=== PATIENT | female | born 2005 | race Caucasian/White ===

== ENCOUNTER 2023-12-14 18:22 | Emergency (ER) | payer OTHER, SELFPAY ==
[2023-12-14 18:22] VITALS: BMI 23.4
[2023-12-14 18:50] VITALS: BP 112/80
--- NOTE | 2023-12-14 18:52 | ED.PDOC.TRB ---
ED Provider Triage
-
Patient seen by provider in Triage?: Seen in Triage
*Initial assessment in triage to expedite workup*
18 yo female presents for evaluation of RLQ pain, blood in the urine w/ N/V. Pain is sharp in nature. Worse with urination, radiates to the low back. LMP 12/02. Had STD test and UA at primary doc that were negative.
Clinically looks well. Moderate RLQ tenderness, No CVAT. Slightly tachy, otherwise normal VS.
Will order CBC, CMP, hcg, CT w/ IV and PO contrast to eval for appy, kidney stone, TOA
[2023-12-14 19:11] LABS: % Basophils 0.7 % (0-2); % Eosinophils 0.6 % (0-6); % Immature Granulocytes 0.3 % (0-0.5); % Lymphocytes 20.7 % (20.5-51.1); % Monocytes 4.6 % (1.7-9.3); % Neutrophils 73.1 % (42.2-75.2); Absolute Basophils 0.1 10^3/uL (0-0.2); Absolute Eosinophils 0.1 10^3/uL (0-0.7); Absolute Lymphocytes 2.1 10^3/uL (1.2-3.4); Absolute Monocytes 0.5 10^3/uL (0.1-0.6); Absolute Neutrophils 7.2 10^3/uL (1.4-6.5); Hematocrit 37.9 % (37.0-47.0); Hemoglobin 14.2 g/dL (12.0-16.0); Mean Corp Hgb Conc. 37.5 g/dL (33.0-37.0); Mean Corpuscular Hgb 30.9 pg (27.0-31.0); Mean Corpuscular Volume 82.6 fL (81.0-99.0); Mean Platelet Volume 8.9 fL (7.4-10.4); Nucleated Red Blood Cells % 0 %; Platelet Count 301 10^3/uL (130-400); Red Blood Cell Count 4.59 10^6/uL (4.20-5.40); Red Cell Dist. Width 12.1 % (11.5-14.5); White Blood Cell Count 9.9 10^3/uL (4.8-10.8)
[2023-12-14] MEDS: OMNIPAQUE 960 ML PO (19:22)
[2023-12-14 19:43] LABS: ALT (SGPT) 17 U/L (0-35); AST (SGOT) 26 U/L (14-36); Albumin 4.9 g/dl (3.5-5.0); Alkaline Phosphatase 79 U/L (38-126); Blood Urea Nitrogen 11 mg/dl (7-17); Calcium 10.2 mg/dl (8.4-10.2); Carbon Dioxide 26 mmol/L (22-30); Chloride 100 mmol/L (98-107); Glucose 127 mg/dl (70-99); Potassium 3.8 mmol/L (3.5-5.1); Sodium 136 mmol/L (135-145); Total Bilirubin 0.6 mg/dl (0.2-1.3); Total Protein 7.5 g/dl (6.3-8.2); eGFR > 60.00
[2023-12-14 19:45] LABS: HCG, Serum Qualitative Screen Negative
[2023-12-14 20:22] LABS: Urine Albumin Negative (Neg - Trace); Urine Bilirubin Negative (Negative); Urine Character Clear (Clear); Urine Color Yellow; Urine Glucose Negative (Negative); Urine Ketone Negative (Negative); Urine Leukocyte 1+ (Negative); Urine Nitrite Negative (Negative); Urine Occult Blood Negative (Negative); Urine Specific Gravity 1.005 (<1.030); Urine Urobilinogen Negative (Neg - 1+)
[2023-12-14 20:44] LABS: Urine Squamous Cell 16-20 /LPF (Few)
[2023-12-14 20:45] LABS: Urine Bacteria Few (Negative); Urine Red Blood Cell 0-2 /HPF (0-2); Urine White Cell 26-30 /HPF (0-5)
[2023-12-14 21:35] VITALS: BP 103/72
--- NOTE | 2023-12-14 22:06 | ED.GENMED ---
History of Present Illness
General
Chief Complaint: Abdominal Pain
Source: patient
Exam Limitations: none
Time Seen by Provider: 12/14/23 21:06
Travel History
Have you had any contact with someone who has COVID-19?: No
Do you have any symptoms of coronavirus? Fever > 100 degrees, chills, cough, shortness of breath, sore throat, loss of taste or smell, muscle aches, or headache?: No
History of Present Illness
History of Present Illness:
This is a 18 year old female that comes in with c/o blood in her urine. States that this started at 3pm today. States that she started with urinary tract infection symptoms so she went home from work early. States that she went to and when they
did he exam she had right lower abd tenderness. States that she vomited in the ER waiting room and had diarrhea. States that she has also had back pain and urinary burning. Denies any fever, chills, chest pain, SOB, headache, dizziness.
Past History
Past History
ED Past Medical History: Psychiatric (Depression) and Other (Chronic Bronchitis, )
ED Past Surgical History: Other (Blocked tear duct surgery)
Social History
Tobacco: Smoker
Alcohol: Occasional
Drug: None
Personal: Single
Living: with family
Review of Systems
Review of Systems
All Other Systems: ROS reviewed and negative except as documented in HPI and ROS
Constitutional: Reports no symptoms; Denies fever or chills
EENT: Reports no symptoms
Respiratory: Reports no symptoms; Denies cough or trouble breathing
Cardiac: Reports no symptoms; Denies chest pain
ABD/GI: Reports abdominal pain, nausea, vomiting and diarrhea
: Reports no symptoms
Musculoskeletal: Reports no symptoms
Skin: Reports no symptoms
Neurological: Reports no symptoms; Denies dizzy or headache
Psychiatric: Reports no symptoms
Phy Exam
General Physical Exam
General Presentation: well appearing and no apparent distress
General age: appears stated age
General Skin: warm and dry
General Habitus: normal
General Mental: alert
General Hydration: appears well hydrated
ENT Exam
ENT Exam: TM's normal, pharynx normal and neck supple
Eye Exam
Eye Exam: EOMI
Cardiovascular Exam
Cardiovascular Exam: regular rate/rhythm, no edema, no murmur and normal peripheral pulses
Pulmonary Exam
Pulmonary Exam: lungs clear, no respiratory distress, no rales, chest non tender, no crackles, no rhonchi, no wheezing and no cough
Gastrointestinal Exam
Gastrointestinal Exam: normal bowel sounds, soft, no organomegaly, no pulsatile mass, non distended and tender (RLQ tenderness with palpation)
Musculoskeletal Exam
Musculoskeletal Exam: full ROM and no edema
Skin Exam
Skin Exam: normal color, warm/dry, no rash and no petechia
Psychiatric Exam
Psychiatric Exam: normal mood/affect
Course
Orders/Labs/Results
Orders:
Orders
12/14/23 18:57
CT Abd/pel W Iv And Oral Contr Urgent
Comment:
Reason For Exam: RLQ pain hematuria
Test Result ONCE
12/14/23 18:58
Iohexol [Omnipaque] See Protocol PO NOW STA
12/14/23 19:06
Complete Blood Count/With Diff Urgent
Comprehensive Metabolic Panel Urgent
HCG, Serum Qualitative Screen Urgent
12/14/23 19:50
Urinalysis Reflex To Culture Urgent
Date Specimen was Collected: 12/14/23
Time Specimen was Collected: 18:57
Urine Microscopic Reflex Cult Urgent
Urine Culture Urgent
H[facility]SA Source: U
Specimen Description:
Date Specimen was Collected: 12/14/23
Time Specimen was Collected: 18:57
12/14/23 22:05
0.9% Sodium Chloride 1000 ml [Nss] 1,000 ml IV BOLUS
CefTRIAXone [Rocephin] 1,000 mg IV NOW STA
Abnormal Lab Results
12/14/23 12/14/23
19:06 19:50
MCHC 37.5 H g/dL
(33.0-37.0)
Absolute Neuts (auto) 7.2 H 10^3/uL
(1.4-6.5)
Glucose 127 H mg/dl
(70-99)
Leukocyte Esterase Rfl 1+ A
(Negative)
Urine WBC (Reflex) 26-30 A /HPF
(0-5)
Urine Bacteria (Reflex) Few A
(Negative)
12/14/23 19:06
12/14/23 19:06
Glucose nonfasting. Urine positive for infection. HCG, negative,
Vital Signs
Initial and Last Documented VS:
Initial Vital Signs
Temp Pulse Resp BP Pulse Ox
98 F 100 18 112/80 98
12/14/23 18:50 12/14/23 18:50 12/14/23 18:50 12/14/23 18:50 12/14/23 18:50
Last Documented Vital Signs
Temp Pulse Resp BP Pulse Ox
98 F 61 18 103/72 99
12/14/23 18:50 12/14/23 21:35 12/14/23 21:35 12/14/23 21:35 12/14/23 21:35
MDM/Problems Addressed
Differential Diagnosis Includes:
Appendicitis. Renal calculus, UTI
MDM/Problems Addressed:
This is a 18 year old female that comes in with c/o urinary symptoms. States that she also has RLQ pain after she was seen at and they palpated her abd.
Will get labs, Urine and CT was ordered. Will also give IV fluids.
Back into see patient. Explained that her CT is normal. Blood work is normal but she does have a UTI. Patient was given IV antibiotic here and will sent a prescription to her Pharmacy to treat the UTi. Patient to return with a fever, vomiting,
increased or changing pain.
Chronic conditions affecting care:
NA
Acute Exacerbation and/or Progression of Chronic Illness:
NA
*Radiology
Radiology exam reviewed: radiology read reviewed (CT=Normal)
*Pulse Oximetry
Patient hypoxic: no
*EKG
Interpreted by ED Provider?: NA
Rate: EKG- N/A
*Consulting Solution Director Interpretation
Rate: Consulting Solution Director- N/A
*Critical Care Note
Total Time (30-74mins, 75-104mins- exclusive of procedures): Not Applicable
ED Attending Note
-
Portions of this chart may have been created with voice recognition software.� Occasional wrong word or��sound alike� substitutions may have occurred due to the inherent limitations of voice recognition software.
Discharge Plan
Departure
Patient Disposition: Home (Routine Discharge)
Date of Disposition: 12/14/23
Time of Disposition: 23:05
Patient with high blood pressure during this ER visit?: No
Condition: Good
Covid-19: Not Applicable
Discharge Problem:
Urinary tract infection
Instructions: Urinary Tract Infection, Adult ED
Prescriptions:
New
cephalexin 500 mg capsule
500 mg PO BID 7 Days Qty: 14 0RF
No Action
ondansetron 4 MG tablet,disintegrating
4 mg PO TIDPRN PRN (Reason: nausea) Qty: 9 0RF
Minocycline
1 tab PO DAILY
cephalexin 500 mg capsule
500 mg PO BID 10 Days Qty: 20 0RF
methylprednisolone [Medrol (Attila)] 4 mg tablets,dose pack
4 mg PO DIRECTED Qty: 21 0RF
Referrals:
Melissa Daniels, [Family Provider] - Call in 1-3 days for appt
Activity Restrictions/Additional Instructions:
As discussed, your blood work is normal. Your CT is normal. You do have a urinary tract infection. Please increase your water intake to 8-8oz glasses daily. You have been given IV antibiotic here and a prescription has been sent to your Pharmacy.
Please take as directed. Follow up with the family doctor for recheck. IF YOU HAVE ANY OTHER CONCERNS PLEASE RETURN TO THE EMERGENCY ROOM.
Interventions
Interventions:
*Risk Screen - Suicide Last Done: 12/14/23 18:50
*General Assessment Last Done: 12/14/23 18:50
*Neglect/Abuse Screening Last Done: 12/14/23 18:50
YS-Lptwoy-Ybpjjxsglk Assessment Last Done: 12/14/23 21:35
Discharge Date and Time
Print Language: BENGALI
[2023-12-14] MEDS: NSS 1000 IV (22:16)
[2023-12-14] MEDS: ROCEPHIN 1000 MG IV (22:17)
== END 2023-12-14 23:24 | disposition home or self-care (01) ==
LOC: EMR 18:22
PROVIDERS: Physician Assistant; EMERGENCY PHYSICIAN Emergency Medicine; FAMILY PHYSICIAN Family Medicine
DX: N39.0 Urinary tract infection, site not specified (principal); R11.2 Nausea with vomiting, unspecified; R19.7 Diarrhea, unspecified; R10.9 Unspecified abdominal pain; J42 Unspecified chronic bronchitis; F32.A Depression, unspecified; F17.200 Nicotine dependence, unspecified, uncomplicated; Z88.1 Allergy status to other antibiotic agents
CPT/HCPCS: 99285; 96374; 74177; 80053; 81003; 81015; 84703; 85025; 87086; Q9967